=== PATIENT | female | born 1995 | race African-American/Black ===

== ENCOUNTER 2020-01-13 07:29 | Emergency (ER) | payer MEDICAID, OTHER ==
[~2020-01-13] VITALS: Ht 152.4 cm; Wt 56.0 kg
[~2020-01-13 07:29] MED LIST: PRENATAL
[2020-01-13 10:09] LABS: CLARITY URINE CLOUDY (CLEAR); COLOR URINE ORANGE (YELLOW); KETONES URINE 4+ (NEGATIVE); LEUKOCYTE ESTERASE URINE 2+ (NEGATIVE); NITRITE URINE NEGATIVE (NEGATIVE); OCCULT BLOOD URINE NEGATIVE (NEGATIVE); PH URINE 5.5 (4.5-8.0); PROTEIN URINE 1+ (NEGATIVE); SPECIFIC GRAVITY URINE 1.036 (1.005-1.030)
[2020-01-13 11:17] LABS: BASOPHILS % 0.4 % (0.0-2.0); EOSINOPHILS % 0.4 % (0.0-5.0); HEMATOCRIT. 41.7 % (36.0-48.0); HEMOGLOBIN. 14.5 g/dL (12.0-16.0); LYMPHOCYTES % 12.7 % (20.0-50.0); MEAN CORPUSCULAR HEMOGLOBIN 33.2 pg (28.0-32.0); MEAN CORPUSCULAR VOLUME 95.4 fL (81.0-99.0); MEAN PLATELET VOLUME 8.6 fl (7.4-10.4); MONOCYTES % 11.4 % (2.0-8.0); NEUTROPHILS % 75.1 % (40.0-76.0); PLATELET 191 x1000/uL (130-400); RED BLOOD CELL COUNT 4.37 mill/uL (4.2-5.4); RED CELL DISTRIBUTION WIDTH 12.7 % (11.6-14.6)
[2020-01-13 11:18] LABS: CHLORIDE 104 mEq/L (98-107)
[2020-01-13 11:23] LABS: PROTHROMBIN TIME 10.9 sec (9.6-11.0)
[2020-01-13 11:30] LABS: HCG SCREEN NEGATIVE
[2020-01-13] MEDS ORDERED: DIATR MEGLU/DIATRIZOATE SOLN 120ML ONE (14:16)
[2020-01-13 15:46] VITALS: BP 110/83
== END 2020-01-13 15:48 | disposition home or self-care (01) ==
LOC: ER 07:29
DX: K56.1 Intussusception (principal); K63.89 Other specified diseases of intestine; R10.31 Right lower quadrant pain; R11.2 Nausea with vomiting, unspecified
CPT/HCPCS: 36415; 74176; 76857; 80053; 81003; 81025; 83690; 84703; 85025; 85610; 87086; 99285; Q9963